=== PATIENT | female | born 1975 | race Caucasian/White ===

== ENCOUNTER 2018-09-16 18:40 | Emergency (ER) | payer OTHER ==
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
== END 2018-09-16 21:00 | disposition home or self-care (01) ==
LOC: ER 18:40
DX: S16.1XXA Strain of muscle, fascia and tendon at neck level, initial encounter (principal); V49.50XA Passenger injured in collision with unspecified motor vehicles in traffic accident, initial encounter; Z88.5 Allergy status to narcotic agent
CPT/HCPCS: 70450; 72125; 99284